=== PATIENT | female | born 1950 | race African-American/Black ===

== ENCOUNTER 2018-06-29 20:17 | Inpatient (IN) | payer OTHER, MEDICAID ==
[~2018-06-29] VITALS: Ht 149.9 cm; Wt 74.8 kg
--- NOTE | 2018-06-29 20:24 | NUR ---
Placed in room 06 . Placed on manager monitoring, blood pressure machine and pulse oximeter. To gown for exam. Side rails up. Report given to GILDARDO LAKE.
[2018-06-29 20:29] VITALS: BP_SYST 126
--- NOTE | 2018-06-29 20:30 | NUR ---
ER Dr. CAMPBELL at bedside examining patient.
[2018-06-29] MEDS ORDERED: NACL 0.9% 1,000 ML IV ONE (20:31)
--- NOTE | 2018-06-29 20:40 | NUR ---
Pt came into the ED for vomiting that started earlier this evening post meal. Pt states that she has intermittent abd pain. She said that she has had multiple vomiting episodes and nausea prior to coming to the ED. HX of breast, liver and bone cancer. She reports that her oncologist who took her off chemotherapy for 12 months. Her marine rigger crissy reports that Dr. Kennedy is her primary and wanted to admit. No fever, chills, SOB, diarrhea, or chest pain.
[2018-06-29] MEDS ORDERED: ONDANSETRON HCL 4 MG/2 ML VIAL IVP ONE (20:45)
--- NOTE | 2018-06-29 20:50 | NUR ---
# 20 gauge angiocath placed to LAC. Use of asceptic technique. Opsite placed over site. Blood return noted. Blood for lab drawn from site. Flushed with 10 cc of normal saline. No evidence of infiltration noted. Patient tolerated well.
--- NOTE | 2018-06-29 20:51 | NUR ---
Pt medicated with NS at 100 mL of fluids per MD order. Pt tolerating well. Will cont. to monitor.
--- NOTE | 2018-06-29 21:04 | NUR ---
# 16 FR In and Out catheter with use of sterile technique. Immediate return of 100 ml dark yellow urine noted. Urine sample collected and sent to lab. Pt tolerated procedure well. Patient unable to toilet self.
[2018-06-29 21:17] LABS: CALCIUM 8.6 mg/dL (8.4-11.0); CREATININE 0.71 mg/dL (0.55-1.30)
[2018-06-29 21:20] LABS: POTASSIUM 6.8 mmol/L (3.5-5.1)
[2018-06-29] MEDS ORDERED: SODIUM POLYSTYRENE SULFONATE 15 GM/60 ML UDBTL PO ONE (21:30)
[2018-06-29] MEDS ORDERED: SODIUM POLYSTYRENE SULFONATE 15 GM/60 ML UDBTL RC ONE (21:30)
[2018-06-29] MEDS ORDERED: DEXTROSE 50% JECT 50 ML DISP.SYRIN IVP ONE (21:30)
[2018-06-29] MEDS ORDERED: INSULIN REGULAR, HUMAN 10 UNITS/0.1 ML INJ IVP ONE (21:30)
[2018-06-29] MEDS ORDERED: HYDR-4272 PO (21:36)
[2018-06-29] MEDS ORDERED: FERR-31 PO (21:36)
[2018-06-29] MEDS ORDERED: CRAN450C PO (21:36)
[2018-06-29] MEDS ORDERED: ACET325T53 PO (21:36)
[2018-06-29] MEDS ORDERED: MULT-1100 PO (21:36)
[2018-06-29] MEDS ORDERED: HAL5 PO (21:36)
--- NOTE | 2018-06-29 21:36 | NUR ---
Medication reconciliation completed with information provided by patient. Any prior medication reconciliation on file was reviewed and corrected.
[2018-06-29 21:40] LABS: BILIRUBIN,URINE 3+ (NEGATIVE); BLOOD, URINE 2+ (NEGATIVE); CLARITY/URINE CLOUDY (CLEAR); COLOR,URINE YELLOW (YELLOW); GLUCOSE,URINE TRACE (NEGATIVE); KETONES,URINE TRACE (NEGATIVE); LEUKOCYTE ESTERASE ,URINE 1+ (NEGATIVE); NITRITE, URINE NEGATIVE (NEGATIVE); PH,URINE 5.5 (5.0-8.0); PROTEIN URINE 1+ (NEGATIVE)
[2018-06-29 21:52] LABS: INR 1.7 (0.8-1.2); PROTHROMBIN TIME 16.6 SECS (9.5-12.5)
[2018-06-29 22:06] LABS: HEMATOCRIT 26.6 % (36-48); HEMOGLOBIN 9.4 g/dL (12.0-16.0); RED BLOOD CELL COUNT(AUTO) 2.59 MIL/uL (4.2-6.2)
[2018-06-29 22:07] LABS: MEAN CORPUSCULAR HEMOGLOBIN 36 pg (27-31); MEAN CORPUSCULAR HGB CONC 35 % (32-36); MEAN CORPUSCULAR VOLUME 103 fL (79.0-98.0); RED CELL DISTRIBUTION WIDTH 21.4 % (9.0-15.0)
[2018-06-29 22:08] LABS: PLATELET COUNT (AUTO) 103 K/uL (130-430)
[2018-06-29 22:11] LABS: ATYPICAL LYMPHOCYTES % 1 % (0-0); BAND % (MANUAL) 8 % (0-6); BASOPHILS % (MANUAL) 0 % (0-2); EOSINOPHILS % (MANUAL) 2 % (0-7); LYMPHOCYTES % (MANUAL) 8 % (20-46); METAMYELOCYTES % 0 % (0-0); MONOCYTES % (MANUAL) 4 % (0-11); MYELOCYTES % 1 % (0-0)
[2018-06-29 22:18] LABS: TOTAL BILIRUBIN 20.5 mg/dL (0.0-1.0)
[2018-06-29 22:19] LABS: ALBUMIN 1.6 g/dL (3.4-4.8)
[2018-06-29 22:48] LABS: BACTERIA,URINE MANY /HPF (None Seen); RBC,URINE 20-50 /HPF (0-3); WBC,URINE 20-50 /HPF (0-3)
[2018-06-29 22:49] LABS: COARSE GRANULAR CASTS,URINE 0-10 /LPF (None Seen); MUCUS,URINE 1+ /LPF (None Seen); YEAST,URINE None Seen /HPF (None Seen)
--- NOTE | 2018-06-29 22:59 | NUR ---
Patient will be admitted to care of Dr. Kennedy. Admitted to icu unit. Will go to room 4. Belongings list completed. Summary report printed. Report will be given at bedside.
--- NOTE | 2018-06-29 23:20 | NUR ---
Transfer to ICU via ACLS protocol. Licensed nurse present. IV present no signs or symptoms of infiltration. Report given to ALESKANDRA Stewart
[2018-06-29 23:45] VITALS: BP_SYST 114; BP_SYST 119
--- NOTE | 2018-06-29 23:45 | NUR ---
ADMISSION Pt came in via connie AAOX4, received report from RECTIFYING ATTENDANT, on room air with VSS. Complaints of nausea and denies pain. Abrasion noted on the left leg, leg foot and right foot. Multiple scratches noted on the abdomen and back. IV on the LAC patent with no redness or infiltration noted. Safety precaution observed, call light within reach. Will continue to monitor Pt.
[2018-06-29] MEDS: D5/0.45 NS 1,000 ML IV SCH (23:48)
[2018-06-30] VITALS (23 sets, daily range): BP systolic 103–142
[2018-06-30] MEDS: ONDANSETRON HCL 4 MG/2 ML VIAL IVP PRN ×2 (00:56→13:01)
[2018-06-30] MEDS: TEMAZEPAM 15 MG CAPSULE PO PRN ×2 (02:00→21:02)
[2018-06-30] MEDS: ACETAMINOPHEN 325 MG TABLET PO PRN (03:28)
[2018-06-30] MEDS ORDERED: TEMAZEPAM 15 MG CAPSULE ONE (03:32)
--- NOTE | 2018-06-30 04:00 | NUR ---
REASSESSMENT Pt in bed, no acute distress at this time. Will continue to monitor Pt.
--- NOTE | 2018-06-30 05:27 | NUR ---
DR DEL ANGEL EXCHANGE NOTIFFIED OF CONSULT.TALKED TO MARCY
[2018-06-30 06:45] LABS: CREATININE 0.79 mg/dL (0.55-1.30); POTASSIUM 3.7 mmol/L (3.5-5.1)
[2018-06-30 06:56] LABS: PHOSPHORUS 4.4 mg/dL (2.7-4.5)
--- NOTE | 2018-06-30 07:00 | NUR ---
FRANK CATHETER # 16 FR Frank catheter with bulb inserted with use of sterile technique. Bulb inflated with 10 cc sterile water. Immediate return of 10 cc polo urine noted. Bedside drainage bag placed below level of bladder. Pt tolerated procedure well.
--- NOTE | 2018-06-30 07:18 | NUR ---
CLOSING NOTES Pt in bed, IV lines and skin checked. Will give report to oncoming RN via SBAR.
[2018-06-30 07:24] LABS: HEMOGLOBIN 7.6 g/dL (12.0-16.0); MEAN CORPUSCULAR HEMOGLOBIN 36 pg (27-31); MEAN CORPUSCULAR HGB CONC 35 % (32-36); MEAN CORPUSCULAR VOLUME 103 fL (79.0-98.0); PLATELET COUNT (AUTO) 62 K/uL (130-430); RED BLOOD CELL COUNT(AUTO) 2.11 MIL/uL (4.2-6.2); RED CELL DISTRIBUTION WIDTH 21.2 % (9.0-15.0)
[2018-06-30 07:29] LABS: HEMATOCRIT 21.8 % (36-48)
--- NOTE | 2018-06-30 07:30 | NUR ---
AM notes: Received patient lying down, drowsy but easy arousal when calling names. no s/s of cardiopulmonary distress. lung sound diminished. ivf infusing well site patent D5 1/2 ns @ 75ml/hr. abdomen distended. skin jaundice. generalized abrasion r/t abrasion. generalized edema. dx of anasarca. vital sign stable, afebrile. informed about the poc. verbalized understanding. call light within reach.bed is low and lock position. will monitor.
--- NOTE | 2018-06-30 09:30 | NUR ---
lanza catheter discontinued. patient complaining of lanza catheter hurting.requested to removed. lanza discontinued.tip is intact. no hematuria noted.encourage to notify nurse first void. verbalized understanding. will monitor.
[2018-06-30 10:05] LABS: ATYPICAL LYMPHOCYTES % 0 % (0-0); BAND % (MANUAL) 2 % (0-6); BASOPHILS % (MANUAL) 0 % (0-2); EOSINOPHILS % (MANUAL) 1 % (0-7); LYMPHOCYTES % (MANUAL) 8 % (20-46); MONOCYTES % (MANUAL) 6 % (0-11)
--- NOTE | 2018-06-30 10:05 | NUR ---
notes: Paged MD price via pager. awaited to callback.
--- NOTE | 2018-06-30 10:18 | NUR ---
Nutrition Update Husam Scale 14 noted. Pt admitted for hyponatremia, hypokalemia, dehydration, metastasis. Diet: clear liquid BMI: 33.3 kg/m2 RD to follow per nutrition care standards.
--- NOTE | 2018-06-30 13:00 | NUR ---
Notes: patient complained of nausea after eating clear liquid diet. medicated with zofran 4 mg ivp.
[2018-06-30] MEDS: D5/0.45 NS 1,000 ML IV SCH (15:02)
--- NOTE | 2018-06-30 15:20 | NUR ---
ONCOLOGY CONSULT: seen by Dr. Marcano discuss with patient. new order received.
--- NOTE | 2018-06-30 16:15 | NUR ---
notes: patient vomited food contain brownish color noted. cleanse and oral care provided. will monitor.
--- NOTE | 2018-06-30 16:50 | NUR ---
NOTES: unable to finished venous ultrasound because patient vomited. will try again later.
[2018-06-30] MEDS ORDERED: NS 500 ML IV ONE (17:00)
--- NOTE | 2018-06-30 17:00 | NUR ---
NEPHRO CONSULT: SEEN BY DR. ISIDRO INFORMED ABOUT PATIENT CURRENT CONDITION. LOW URINE OUTPUT. NEW ORDER RECEIVED REGLAN 10MG IVP @6 HRS PRN FOR N/V AND 500ML OF NORMAL SALINE BOLUS.NOTED.
[2018-06-30] MEDS: METOCLOPRAMIDE HCL 10 MG/2 ML VIAL IVP SCH (17:10)
--- NOTE | 2018-06-30 18:48 | NUR ---
Notes: all needs mets. patient a/o, denies pain. still feel nauseated. x 2 vomited for entire shift brownish color. ivf infusing well site patent. no swelling or infiltration noted. generalized edema.turn and reposition q2 hrs with pillow support. multiple abrasion and scratches noted. no open skin. vital sign stable,afebrile. held dinner for now. Venous Doppler ultrasound ongoing at the bedside.call light within reach. will endorsed to incoming nurse.
--- NOTE | 2018-06-30 20:00 | NUR ---
TRANSFER OF CARE Pt AAOX4, received report from AM shift RN, on room air with VSS. No acute distress at this time. Abrasion noted on the left leg, leg foot and right foot. Multiple scratches noted on the abdomen and back. IV on the LAC patent with no redness or infiltration noted. Dacosta catheter refused by Pt. Safety precaution observed, call light within reach. Will continue to monitor Pt.
[2018-06-30] MEDS: HALOPERIDOL 5 MG TABLET (HALDOL) PO SCH (21:02)
[2018-06-30] MEDS: HEPARIN SODIUM,PORCINE 5000 UNITS/ML VIAL SUBCUT SCH (22:02)
[2018-07-01] VITALS (24 sets, daily range): BP systolic 87–131
--- NOTE | 2018-07-01 | NUR ---
REASSESSMENT Pt in bed, no acute distress at this time. Will continue to monitor Pt.
[2018-07-01] MEDS: D5/0.45 NS 1,000 ML IV SCH ×2 (02:13→15:45)
--- NOTE | 2018-07-01 04:00 | NUR ---
REASSESSMENT Pt in bed, no acute distress at this time. Will continue to monitor Pt.
[2018-07-01] MEDS: ONDANSETRON HCL 4 MG/2 ML VIAL IVP PRN ×2 (05:41→15:46)
[2018-07-01 06:08] LABS: HEMATOCRIT 24.9 % (36-48); HEMOGLOBIN 8.6 g/dL (12.0-16.0); MEAN CORPUSCULAR HEMOGLOBIN 35 pg (27-31); MEAN CORPUSCULAR HGB CONC 34 % (32-36); MEAN CORPUSCULAR VOLUME 101 fL (79.0-98.0); PLATELET COUNT (AUTO) 65 K/uL (130-430); RED BLOOD CELL COUNT(AUTO) 2.46 MIL/uL (4.2-6.2); WHITE BLOOD COUNT (AUTO) 7.9 K/uL (4.8-10.8)
[2018-07-01 06:57] LABS: TOTAL IRON BIND. CAPACITY 139 ug/dL (250-450)
--- NOTE | 2018-07-01 07:25 | NUR ---
CLOSING NOTES Pt in bed, no acute distress at this time. IV lines and skin checked. Gave report to AM shift RN.
[2018-07-01 08:26] LABS: BAND % (MANUAL) 6 % (0-6); BASOPHILS % (MANUAL) 0 % (0-2); EOSINOPHILS % (MANUAL) 0 % (0-7); LYMPHOCYTES % (MANUAL) 9 % (20-46); MONOCYTES % (MANUAL) 3 % (0-11); MYELOCYTES % 1 % (0-0)
--- NOTE | 2018-07-01 09:05 | NUR ---
MADE DR DEL ANGEL AWARE CT ABDOMEN W/ CONTRAST CANNOT BE COMPLETE D/T PT ALLERGY TO SHELLFISH. MD TO COME SEE PT LATER TODAY. NO NEW ORDERS RECEIVED AT THIS TIME.
[2018-07-01] MEDS: HEPARIN SODIUM,PORCINE 5000 UNITS/ML VIAL SUBCUT SCH ×2 (09:07→20:26)
--- NOTE | 2018-07-01 09:30 | NUR ---
DR MENA HERE TO EVALUATE PT. AWARE OF AM LABS AND PT FOR PICC/MIDLINE INSERTION TODAY. ORDERS RECEIVED.
[2018-07-01] MEDS: METOCLOPRAMIDE HCL 10 MG/2 ML VIAL IVP SCH ×4 (12:06→23:44)
--- NOTE | 2018-07-01 14:27 | NUR ---
Dietitian Recommendations * Recommend continuing clear liquid diet per MD * Consider TPN support if/when medically appropriate LP, RD Please refer to Nutrition Assessment for details.
--- NOTE | 2018-07-01 14:50 | NUR ---
DR DEL ANGEL HERE TO EVALUATE PT. MD AWARE OF LABS, VENOUS DOPPLER RESULT. ORDERS RECEIVED.
[2018-07-01 19:24] LABS: CALCIUM 7.8 mg/dL (8.4-11.0); CREATININE 1.4 mg/dL (0.55-1.30); POTASSIUM 4.6 mmol/L (3.5-5.1)
--- NOTE | 2018-07-01 19:35 | NUR ---
PM Assessment Pt in bed. AAO x4. Pt on RA. SR shown on monitor. No s/s of distress or discomfort noted. Pt skin not intact. Q2H turn interventions in place. LAC 20g IV in place. Site is C/D/I. No s.s of infiltration. Bed locked in lowest position, safety precautions in place, and call light in reach. Will continue to monitor.
[2018-07-01 19:36] LABS: ALBUMIN 1.3 g/dL (3.4-4.8)
[2018-07-01 20:13] LABS: TOTAL BILIRUBIN 17.7 mg/dL (0.0-1.0)
[2018-07-01] MEDS: HALOPERIDOL 5 MG TABLET (HALDOL) PO SCH (20:24)
--- NOTE | 2018-07-01 22:45 | NUR ---
MD Called Spoke with Dr. José regarding Pt's labs. Orders received. Will carry out as ordered.
[2018-07-01] MEDS ORDERED: SODIUM BICARBONATE 8.4% JECT 50 MEQ/50 ML SYRINGE ONE (23:06)
[2018-07-01] MEDS ORDERED: SODIUM BICARBONATE 8.4% JECT 50 MEQ/50 ML SYRINGE IVP SCH (23:30)
[2018-07-02] VITALS (24 sets, daily range): BP systolic 85–171
--- NOTE | 2018-07-02 01:45 | NUR ---
RN Rounds Pt in bed, aasleep. No s/s of distress noted. Will continue to monitor.
--- NOTE | 2018-07-02 04:05 | NUR ---
RN Rounds Pt in bed asleep. No s/s of distress noted. Will continue to monitor.
[2018-07-02 05:09] LABS: HEMOGLOBIN 7.1 g/dL (12.0-16.0); MEAN CORPUSCULAR HEMOGLOBIN 34 pg (27-31); MEAN CORPUSCULAR HGB CONC 34 % (32-36); MEAN CORPUSCULAR VOLUME 101 fL (79.0-98.0); PLATELET COUNT (AUTO) 56 K/uL (130-430); RED BLOOD CELL COUNT(AUTO) 2.09 MIL/uL (4.2-6.2); RED CELL DISTRIBUTION WIDTH 21.5 % (9.0-15.0)
[2018-07-02] MEDS: METOCLOPRAMIDE HCL 10 MG/2 ML VIAL IVP SCH ×4 (05:39→23:33)
[2018-07-02] MEDS: D5/0.45 NS 1,000 ML IV SCH ×2 (05:40→17:12)
[2018-07-02 05:43] LABS: HEMATOCRIT 21.2 % (36-48)
[2018-07-02 05:49] LABS: WHITE BLOOD COUNT (AUTO) 8.5 K/uL (4.8-10.8)
[2018-07-02 05:53] LABS: BAND % (MANUAL) 10 % (0-6); LYMPHOCYTES % (MANUAL) 10 % (20-46)
[2018-07-02 05:55] LABS: EOSINOPHILS % (MANUAL) 2 % (0-7); MONOCYTES % (MANUAL) 8 % (0-11)
[2018-07-02 06:30] LABS: ALBUMIN 1.1 g/dL (3.4-4.8); CALCIUM 7.7 mg/dL (8.4-11.0); CREATININE 1.75 mg/dL (0.55-1.30); POTASSIUM 4.3 mmol/L (3.5-5.1)
[2018-07-02 06:39] LABS: TOTAL BILIRUBIN 15.7 mg/dL (0.0-1.0)
--- NOTE | 2018-07-02 07:10 | NUR ---
Endorsement Pt remains asleep in bed. PICC line site C/D/I. IV LAC discontinued. No s/s of distress noted. Gave report to oncoming nurse at bedside via SBAR approach.
[2018-07-02] MEDS: HEPARIN SODIUM,PORCINE 5000 UNITS/ML VIAL SUBCUT SCH ×2 (08:47→20:27)
--- NOTE | 2018-07-02 09:03 | NUR ---
MADE DR MENA AWARE OF LOW H&H AND LOW BP. ORDERS RECEIVED.
[2018-07-02] MEDS ORDERED: NS 500 ML IV ONE ×2 (09:15→23:22)
[2018-07-02] MEDS ORDERED: SODIUM BICARBONATE 8.4% JECT 50 MEQ/50 ML SYRINGE IVP ONE (14:30)
--- NOTE | 2018-07-02 16:24 | NUR ---
DR MENA HERE TO EVALUATE PT. MADE MD AWARE OF PT HAVING BLOODY NOSE THIS MORNING AND THAT HEPARIN WAS HELD. MADE MD AWARE PT NOT TOLERATING PO DIET VERY WELL, GETS NAUSEAS, MD TO ORDER TPN.
[2018-07-02] MEDS ORDERED: *TPN PER PHARMACY XX PRN (16:30)
--- NOTE | 2018-07-02 19:30 | NUR ---
PM ASSESSMENT REPORT RECEIVED FROM MARYLIN LAKE. PT RECEIVED IN BED WITH EYES CLOSED, AAOX3 BUT LETHARGIC, AND ABLE TO VERBALIZE NEEDS. VSS, NO S/S OF ACUTE DISTRESS NOTED AT THIS TIME. PT ON RA, SAT 95%. SR ON MONITOR. COLTON PICC INFUSING D5 1/2 NS @ 100 CC/HR. PT DENIES ANY PAIN OR DISCOMFORT AT THIS TIME. HOB ELEVATED, BED IN LOWEST POSITION, CALL LIGHT IN REACH. WILL CONTINUE TO MONITOR.
[2018-07-02] MEDS: HALOPERIDOL 5 MG TABLET (HALDOL) PO SCH (20:27)
[2018-07-02] MEDS: ACETAMINOPHEN 325 MG TABLET PO PRN (21:29)
--- NOTE | 2018-07-02 21:30 | NUR ---
RN ROUNDS PT C/O PAIN IN BOTH LEGS AT THIS TIME. PT GIVEN TYLENOL PER ORDERS. PT TOLERATED WELL, NO S/S OF MEDICATION REACTIONS NOTED AND PT DENIES ANY NAUSEA AT THIS TIME. WILL CONTINUE TO MONITOR PT.
[2018-07-02] MEDS ORDERED: NOREPINEPHRINE BITARTRATE 4 MG in D5W 246 ML IV PRN (23:30)
[2018-07-03] VITALS (24 sets, daily range): BP systolic 74–108
[2018-07-03] MEDS: D5/0.45 NS 1,000 ML IV SCH ×3 (02:13→21:54)
--- NOTE | 2018-07-03 03:45 | NUR ---
RN ROUNDS PT PASSED MODERATE AMOUNT OF FORMED STOOL AND VOIDED AT THIS TIME. MARY CARE PROVIDED AND LINENS CHANGED. PT TOLERATED WELL. WILL CONTINUE TO MONITOR PT.
[2018-07-03] MEDS: METOCLOPRAMIDE HCL 10 MG/2 ML VIAL IVP SCH ×4 (05:11→23:24)
[2018-07-03 06:52] LABS: MEAN CORPUSCULAR HEMOGLOBIN 34 pg (27-31); MEAN CORPUSCULAR HGB CONC 34 % (32-36); MEAN CORPUSCULAR VOLUME 101 fL (79.0-98.0); RED BLOOD CELL COUNT(AUTO) 2.02 MIL/uL (4.2-6.2); RED CELL DISTRIBUTION WIDTH 20.9 % (9.0-15.0); WHITE BLOOD COUNT (AUTO) 6.7 K/uL (4.8-10.8)
[2018-07-03 06:59] LABS: CALCIUM 7.2 mg/dL (8.4-11.0); CREATININE 2.24 mg/dL (0.55-1.30); PHOSPHORUS 6.5 mg/dL (2.7-4.5); POTASSIUM 4.3 mmol/L (3.5-5.1)
--- NOTE | 2018-07-03 07:45 | NUR ---
RN OPENING NOTE RECEIVED SBAR REPORT AT BEDSIDE FROM ENDORSING NURSE. BED IN LOWEST POSITION, CALL LIGHT WITHIN REACH, AND BED ALARM ACTIVE. SEE VS FLOW SHEET
--- NOTE | 2018-07-03 08:00 | NUR ---
PT REFUSED SCD, CLAIMS IT HURTS HER LEGS
--- NOTE | 2018-07-03 08:16 | NUR ---
DR. ISIDRO (LINE MANAGER) AT BEDSIDE NEW ORDERS RECEIVED
[2018-07-03 08:39] LABS: HEMATOCRIT 20.4 % (36-48); HEMOGLOBIN 6.9 g/dL (12.0-16.0); PLATELET COUNT (AUTO) 35 K/uL (130-430)
[2018-07-03 08:44] LABS: TOTAL BILIRUBIN 16.2 mg/dL (0.0-1.0)
[2018-07-03] MEDS ORDERED: DIPHENHYDRAMINE INJ 50 MG/ML VIAL IVP ONE (08:45)
[2018-07-03] MEDS: HEPARIN SODIUM,PORCINE 5000 UNITS/ML VIAL SUBCUT SCH ×2 (09:11→21:03)
--- NOTE | 2018-07-03 11:29 | NUR ---
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 Pt seen, +IV infusing, c/o coughing. RD obtained wt w/ bed scale 187 lb. 07/03 RD s/w pharmacy, [facility] (3x 0830, 1010, 1110)and RD agreed w/ pharmacy final rec of using nephramine 5.4%. Per EMR, PO intake 8% x 3 meals 07/02/18. Last emesis 06/30/18 100ml. Pt is not yet meeting optimal nutritional needs. Current Diet Order/Nutrition Support Clear liquid x3 days Patient/Significant Other Able To Verbalize Education Provided Not Indicated Pertinent Medications reglan, zofran, D5%/NaCl IV, heparin, haldol Pertinent Labs Na 126 L, BUN 43 H, H/H 7.1 L/21.2 L, CRE 1.75 H, AST 1137 H, ALT 203 H, ALP 1129 H, ALB 1.1 L Height (Feet) 4 feet Height (Inches) 11.00 inches Weight (Pounds) 165 pounds BED SCALE WT: (07/03) 187 lb --- may be inaccurate d/t multiple blankets. Weight (Calculated Kilograms) 74.838877 kilograms Patient Weight 74.843 kg Body Mass Index 33.32 kg/m2 %IBW 167 Dalton/Adjusted Body Weight IBW: 98 lb, 45 kg. Adj IBW (obesity): 115 lb, 52 kg Recent Weight Change No Weight Status Overweight Gastrointestinal Symptoms None Last BM Jul 03, 2018 Food Allergies unable to verify Usual Diet At Home Regular per nursing notes Skin Integrity Comment: Husam scale: 14; per nursing notes, +jaundiced skin color, anterior posterior abd w/ scratches and L foot, L leg, and R foot w/ abrasion. 4+ pitting edema of Bilateral leg, non-pitting edema of R arm. Current % PO Negligible <25% Estimated Energy Expenditure (kcals/day) 2640-4521 kcal/day (30-35 kcal/kg Adj IBW for CA) Estimated Protein Required (g/day) 62-78 gm/day (1.2-1.5 gm/kg Adj IBW for CA) Estimated Fluid Required (l/day) 2.3 L/day (30 ml/kg CBW for maintenance) Problem/Etiology/Signs/Symptoms Inadequate nutritional intakes related to lack of appetite as evidenced by RN report, and plans for TPN support. *ongoing Expected Outcomes/Goals - Monitor TPN tolerance/intake and PO intakes w/ goal of pt meeting greater than 75% of estimated nutritional needs, labs trending WNL, normal GI function, and skin integrity/wt maintenance Dietitian Recommendations * Recommend continuing clear liquid diet per MD * Recommend D40% AA5.4% at 70ml/hr, IL20% at 10ml/hr via central line Provides: 1803 kcal, 45 gm protein and GIR 3.1gm CHO/kg/min Meets: 99% of estimated calorie needs and 73% of lower end of estimated protein needs. Follow Up High Risk: F/U in 2-3days RD s/w pharmacy ([facility]) for final rec 07/03 6125.
--- NOTE | 2018-07-03 11:40 | NUR ---
DR. DEL ANGEL AT BEDSIDE NEW ORDERS RECEIVED
--- NOTE | 2018-07-03 11:44 | NUR ---
Dietitian Recommendations * Recommend continuing clear liquid diet per MD * Recommend D40% AA5.4% at 70ml/hr(goal rate), IL20% at 10ml/hr via central line Provides: 1803 kcal, 45 gm protein and GIR 3.1gm CHO/kg/min Meets: 99% of estimated calorie needs and 73% of lower end of estimated protein needs. RD s/w pharmacy ([facility]) re: final rec. 07/03/18 1110. Please see Nutrition F/U note for details. GLEN BENAVIDEZ
--- NOTE | 2018-07-03 12:15 | NUR ---
CHG BATH ADMINISTERED
[2018-07-03 12:22] LABS: BAND % (MANUAL) 14 % (0-6); BASOPHILS % (MANUAL) 0 % (0-2); EOSINOPHILS % (MANUAL) 0 % (0-7); LYMPHOCYTES % (MANUAL) 11 % (20-46); METAMYELOCYTES % 2 % (0-0); MONOCYTES % (MANUAL) 1 % (0-11)
--- NOTE | 2018-07-03 15:30 | NUR ---
BT INITIATION: Consent signed per Pt agreeing to administration of blood. Blood has been type and crossmatched. Blood sent from blood bank. Information on unit of blood checked against patient wristband at bedside by two nurses. All information matches. Patient or responsible constitution party informed of potential complications associated with blood transfusion. Informed of possible transfusion reaction symptoms. Aware of need to notify nurse at once of itching, shortness of breath, flushing, feeling of impending doom, or other symptoms not previously present. Vital signs taken within 5 minutes prior to initiation of transfusion. RN remained with patient for first 15 minutes of transfusion at which time vital signs will be re-assessed.
[2018-07-03] MEDS ORDERED: FAT EMULSIONS 250 ML IV SCH (18:00)
[2018-07-03] MEDS ORDERED: POTASSIUM CHLORIDE IV SCH ×8 (18:00)
[2018-07-03] MEDS ORDERED: TPN NEPHRAMINE IV SCH ×8 (18:00)
[2018-07-03] MEDS ORDERED: SODIUM ACETATE IV SCH ×8 (18:00)
[2018-07-03] MEDS ORDERED: [UNRECOGNIZED DRUG - OTHER] IV SCH ×8 (18:00)
[2018-07-03] MEDS ORDERED: NOREPINEPHRINE 4 MG/4 ML VIAL IV ONE (18:27)
--- NOTE | 2018-07-03 18:30 | NUR ---
HYPOTENSION-LEVOPHED INFUSION INITIATED SEE IV DRIP FLOW SHEET
--- NOTE | 2018-07-03 19:25 | NUR ---
ENDORSEMENT SBAR REPORT ENDORSED TO RECEIVING NURSE AT BEDSIDE.
--- NOTE | 2018-07-03 19:30 | NUR ---
PM ASSESSMENT REPORT RECEIVED FROM AGNES LAKE. PT RECEIVED IN BED WITH EYES OPEN CONFUSED BUT ABLE TO VERBALIZE NEEDS. PT SHORT OF BREATH AT THIS TIME AND PLACED ON 2L NC. SR ON MONITOR. COLTON PICC IN PLACE INFUSING TPN @ 44 CC/HR, LIPIDS @ 10 CC/HR, D5 1/2 NS @ 100 CC/HR, AND LEVOPHED DRIP @ 2 MCG/MIN. PT DENIES ANY PAIN OR DISCOMFORT. HOB ELEVATED, BED IN LOWEST POSITION, CALL LIGHT IN REACH. WILL CONTINUE TO MONITOR PT.
--- NOTE | 2018-07-03 20:04 | NUR ---
PAGED DR. BOSTON, SPOKE TO EXCHANGE. NURSE AWARE.
--- NOTE | 2018-07-03 20:15 | NUR ---
SOB MD DR. BOSTON ALSO MADE AWARE OF PT SOB AT THIS TIME. DID NOT WANT TO ORDER ABGs OR PULMONARY CONSULT BUT GAVE ORDERS TO TITRATE O2 TO KEEP SATURATIONS >90%. WILL CONTINUE TO MONITOR PT.
--- NOTE | 2018-07-03 20:15 | NUR ---
MD ROUNDS DR. BOSTON AT BEDSIDE TO EVALUATE PT. ORDERS RECEIVED AND WILL BE CARRIED OUT ORDERED.
--- NOTE | 2018-07-03 20:15 | NUR ---
DR. BOSTON HERE EXAMINING PATIENT.
[2018-07-03] MEDS ORDERED: LEVOFLOXACIN 500 MG/D5W 100 ML IV SCH (21:00)
[2018-07-03] MEDS: HALOPERIDOL 5 MG TABLET (HALDOL) PO SCH (21:00)
[2018-07-03] MEDS: ALBUMIN HUMAN 25% 50 ML IV SCH (21:00)
[2018-07-03] MEDS ORDERED: LEVOFLOXACIN 500 MG/D5W 100 ML IV ONE (21:49)
--- NOTE | 2018-07-03 23:10 | NUR ---
OXIMIZER PT PLACED ON 8L OXIMIZER BY RT AT THIS TIME, SAT 91%. WILL CONTINUE TO MONITOR PT.
[2018-07-03] MEDS: TEMAZEPAM 15 MG CAPSULE PO PRN (23:24)
[2018-07-03] MEDS: ACETAMINOPHEN 325 MG TABLET PO PRN (23:25)
[2018-07-04] VITALS (16 sets, daily range): BP systolic 65–137
[2018-07-04] MEDS: ALBUMIN HUMAN 25% 50 ML IV SCH ×2 (00:30→03:55)
[2018-07-04] MEDS ORDERED: NOREPINEPHRINE 4 MG/4 ML VIAL IV ONE ×7 (00:49→15:44)
--- NOTE | 2018-07-04 02:25 | NUR ---
NON-REBREATHER PT SATURATION IN HIGH 70s LOW 80s AT THIS TIME. PT PUT ON 100% NON-REBREATHER MASK BY RT AT THIS TIME. WILL CONTINUE TO MONITOR PT.
--- NOTE | 2018-07-04 03:05 | NUR ---
PT INTUBATED PT BREATHING GROWING INCREASINGLY LABORED, O2 SAT REMAINS IN THE HIGH 70s, LOW 80s ON 100% NON-REBREATHER. PT LETHARGIC AND SOB. PT INTUBATED AT THIS TIME BY ER DR. CAMPBELL. 15 MG ETOMIDATE USED DURING PROCEDURE. SIZE 7.5 ET TUBE PLACED, 21 AT THE LIP LINE. X-RAY OBTAINED FOR CORRECT PLACEMENT. VENT SETTINGS: AC 16, TV 500, FIO2 100%, PEEP 5. O2 SATURATION 100%. WILL CONTINUE TO MONITOR PT.
--- NOTE | 2018-07-04 03:15 | NUR ---
DR. LUDY BOSTON PAGED AND MADE AWARE OF PT INTUBATION. ORDERS RECEIVED AND WILL BE CARRIED OUT ORDERED.
--- NOTE | 2018-07-04 03:15 | NUR ---
OG TUBE PLACEMENT: # 16 FR NG tube placed orally. Placement checked by auscultation of instilled air into stomach and aspiration of gastric contents. Tubing taped in place to prevent dislodging. Patient tolerated well. Ogt placed on low-intermittent suction per MD orders, copious amount of coffee ground secretions suctioned from OGT at this time.
[2018-07-04] MEDS ORDERED: COMMUNICATION ORDER XX ONE ×3 (03:30→19:15)
[2018-07-04] MEDS ORDERED: ETOMIDATE 20 MG/ 10 ML VIAL (AMIDATE) IVP ONE ×2 (03:30→11:12)
--- NOTE | 2018-07-04 03:50 | NUR ---
FRANK CATH: # 16 FR Frank catheter with 10 cc bulb inserted with use of sterile technique. Bulb inflated with 10 cc sterile water. Immediate return of 20 cc TONY urine noted. Bedside drainage bag placed below level of bladder. Pt tolerated procedure well.
--- NOTE | 2018-07-04 03:55 | NUR ---
CALL DR. LUDY LARSON AND MADE AWARE OF PT INTUBATION. ORDERS RECEIVED AND WILL BE CARRIED OUT ORDERED. Addendum: 07/04/18 at 0600 by Hailee Sweet RN WRONG TIME: MD LARSON AT [id number]
--- NOTE | 2018-07-04 04:05 | NUR ---
STAT CONSULT CALLED FOR DR. CARRASCO, DR. CARTAGENA HALAL MEAT PACKER. NURSE NOTIFIED.
--- NOTE | 2018-07-04 04:25 | NUR ---
DR. OSIEL CARTAGENA PAGED AND MADE AWARE OF PT CONDITION AND CURRENT ABGS. ORDERS RECEIVED AND WILL BE CARRIED OUT ORDERED.
[2018-07-04] MEDS ORDERED: LORazepam 2 MG/ML VIAL IVP PRN (04:45)
[2018-07-04] MEDS: NOREPINEPHRINE BITARTRATE 8 MG in D5W 242 ML IV PRN ×5 (04:45→18:24)
--- NOTE | 2018-07-04 04:55 | NUR ---
VENT CHANGES AC CHANGED TO [address] CARTAGENA'S ORDERS. WILL CONTINUE TO MONITOR PT.
[2018-07-04] MEDS ORDERED: SODIUM BICARBONATE 8.4% JECT 50 MEQ/50 ML SYRINGE ONE ×4 (04:58→20:16)
[2018-07-04] MEDS ORDERED: SODIUM BICARBONATE 8.4% JECT 50 MEQ/50 ML SYRINGE IVP SCH (05:00)
[2018-07-04] MEDS ORDERED: NACL 0.9% 1,000 ML IV SCH (05:00)
[2018-07-04] MEDS: METOCLOPRAMIDE HCL 10 MG/2 ML VIAL IVP SCH ×3 (05:08→17:47)
[2018-07-04] MEDS: DOPamine PREMIX 250 ML IV PRN ×4 (06:58→18:06)
[2018-07-04] MEDS ORDERED: DOPamine PREMIX 250 ML IV ONE (06:58)
--- NOTE | 2018-07-04 07:15 | NUR ---
OPENING NOTE: Received plan of care from ALEKSANDRA Stephen. Patient obtunded and on mechanical vent. LT upper arm PICC line patent with infusion pump running. BP low, see flow sheet. Levophed and Dopamine drips in place and running, see flow sheet. Bed locked in lowest position, will continue to monitor.
--- NOTE | 2018-07-04 07:25 | NUR ---
ENDORSEMENT BEDSIDE REPORT GIVEN TO ANUP LAKE USING SBAR APPROACH.
--- NOTE | 2018-07-04 07:35 | NUR ---
Witnessed dopamine infusing at 15 mcgs.
--- NOTE | 2018-07-04 07:40 | NUR ---
RT NOTES PER INCREASED RESPIRATORY RATE TO 28. RN ANUP MADE AWARE. WILL CONTINUE MONITORING.
[2018-07-04] MEDS ORDERED: SODIUM BICARBONATE 8.4% JECT 50 MEQ/50 ML SYRINGE IVP ONE ×4 (07:45→16:30)
--- NOTE | 2018-07-04 07:50 | NUR ---
Family Search Mitchel Chung from pts board and care called back and said that he is unable to find any contact info for the pt.
[2018-07-04 08:04] LABS: ALBUMIN 1.2 g/dL (3.4-4.8); CALCIUM 7.3 mg/dL (8.4-11.0); CREATININE 2.83 mg/dL (0.55-1.30); PHOSPHORUS 8.7 mg/dL (2.7-4.5); POTASSIUM 4.6 mmol/L (3.5-5.1); TOTAL BILIRUBIN 11.5 mg/dL (0.0-1.0)
--- NOTE | 2018-07-04 08:15 | NUR ---
Family Search Called [facility] [phone], spoke with Nevaeh. She will check records and call us back if she finds any family contact info.
[2018-07-04] MEDS: HEPARIN SODIUM,PORCINE 5000 UNITS/ML VIAL SUBCUT SCH (08:20)
--- NOTE | 2018-07-04 08:30 | NUR ---
Family Search Called Dr Holly 's office t inquire if they have any family contact info. The office is closed until 929 per exchange.
--- NOTE | 2018-07-04 08:40 | NUR ---
Family Search Called Dr. Kennedy's office to inquire about family contact. The office is closed and opens up at 0900.
--- NOTE | 2018-07-04 08:45 | NUR ---
Family Search Nevaeh with [facility] called back and has checked all their records and is unable to locate any family contact info.
[2018-07-04 08:47] LABS: MEAN CORPUSCULAR HEMOGLOBIN 35 pg (27-31); MEAN CORPUSCULAR HGB CONC 34 % (32-36); MEAN CORPUSCULAR VOLUME 104 fL (79.0-98.0); RED BLOOD CELL COUNT(AUTO) 1.29 MIL/uL (4.2-6.2); WHITE BLOOD COUNT (AUTO) 3.3 K/uL (4.8-10.8)
[2018-07-04 08:48] LABS: HEMOGLOBIN 4.5 g/dL (12.0-16.0)
[2018-07-04 08:49] LABS: HEMATOCRIT 13.4 % (36-48); PLATELET COUNT (AUTO) 22 K/uL (130-430); RED CELL DISTRIBUTION WIDTH 21.3 % (9.0-15.0)
--- NOTE | 2018-07-04 08:50 | NUR ---
Call out to Dr. Azul for H/H and labs.
--- NOTE | 2018-07-04 09:05 | NUR ---
Paged Dr. Barrera regarding h/h and labs.
--- NOTE | 2018-07-04 09:18 | NUR ---
Spoke with Dr. Azul regarding labs and orders left. Still unable to reach family at this time.
--- NOTE | 2018-07-04 09:40 | NUR ---
RT NOTES INCREASED RESPIRATORY RATE TO [address] CARRASCO. RN ANUP MADE AWARE. WILL CONTINUE MONITORING.
--- NOTE | 2018-07-04 09:40 | NUR ---
Dr. Azul in to see pt. Orders left.
[2018-07-04] MEDS ORDERED: SODIUM BICARBONATE 8.4% JECT 50 MEQ/50 ML SYRINGE IV ONE (09:45)
[2018-07-04] MEDS ORDERED: SODIUM BICARBONATE 8.4% JECT 100 MEQ in 0.45% NACL 1,000 ML IV SCH (10:00)
--- NOTE | 2018-07-04 10:00 | NUR ---
Dr. Barrera called back in and informed labs were reported to someone else and orders left.
--- NOTE | 2018-07-04 10:53 | NUR ---
BT INITIATION: Consent signed per patient agreeing to administration of blood. Blood has been typed and crossmatched. Blood sent from blood bank. Information on unit of blood checked against patient wristband at bedside by two nurses. All information matches. Patient or responsible green party informed of potential complications associated with blood transfusion. Informed of possible transfusion reaction symptoms. Aware of need to notify nurse at once of itching, shortness of breath, flushing, feeling of impending doom, or other symptoms not previously present. Vital signs taken within 5 minutes prior to initiation of transfusion. RN will remain with patient for first 15 minutes of transfusion at which time vital signs will be re-assessed.
--- NOTE | 2018-07-04 11:08 | NUR ---
Blood Transfusion: Blood transfusion started, blood pressure reading undetectable, moved automatic cuff to BUE, and BLE with no reading, able to verify pulse with doppler.
[2018-07-04 11:32] LABS: FIBRINOGEN 154 mg/dL (200-400)
[2018-07-04 11:35] LABS: INR > 9.0 (0.8-1.2); PROTHROMBIN TIME > 100.0 SECS (9.5-12.5)
--- NOTE | 2018-07-04 11:40 | NUR ---
Nataliya.T. PT COMPLETED TRANSFUSION, TEMP LOW, BLOOD PRESSURE READING UNDETECTABLE, SEEN PT MOVED HER LEFT ARM TOWARD HER CHEST, EYES HALF OPENED.
--- NOTE | 2018-07-04 11:50 | NUR ---
B.T. 2ND UNIT PACKED RBC HUNG, VITAL SIGNS MONITORED AND RECORDED, BLOOD PRESSURE THOUGH UNDETECTABLE, CARDIAC RATE IN THE 70'S.
--- NOTE | 2018-07-04 12:18 | NUR ---
DR. DEL ANGEL CALLED CRITICAL VALUE. SPOKE TO MARCY.
[2018-07-04 12:49] LABS: BAND % (MANUAL) 14 % (0-6); EOSINOPHILS % (MANUAL) 0 % (0-7); LYMPHOCYTES % (MANUAL) 11 % (20-46); MONOCYTES % (MANUAL) 1 % (0-11)
[2018-07-04 12:50] LABS: BASOPHILS % (MANUAL) 0 % (0-2); METAMYELOCYTES % 4 % (0-0)
--- NOTE | 2018-07-04 12:55 | NUR ---
B.T. TRANSFUSION DONE, CONTINUE TO MONITOR , CARDIAC RATE IN 70'S.
--- NOTE | 2018-07-04 13:05 | NUR ---
B.T. 3RD UNIT PACKED RBC HUNG, UNIT VERIFIED WITH ANOTHER AGAINST PT'S ID AND TRANSFUSION RECORD, VITAL SIGNS MONITORED BEFORE TRANSFUSION AND AFTER 15 MINUTES OF INFUSION.
--- NOTE | 2018-07-04 13:30 | NUR ---
B.T. TRANSFUSION COMPLETED, CARDIAC RATE NORMAL RANGES, BLOOD PRESSURE UNDETECTABLE.
--- NOTE | 2018-07-04 13:42 | NUR ---
B.T. 4th unit of packed red blood cells infused, vital signs monitored throughout infusion, blood pressure undetectable, pulse present confirmed with doppler, heart rate in the 60s. Addendum: 07/04/18 at 1734 by Naresh Medina RN DIDN'T CHANGE NOTE TIME, SHOULD BE 14:00, INFUSION TIME FROM 13:42 TO 14:00
[2018-07-04] MEDS ORDERED: HYDROCORTISONE SOD SUCC 100 MG/2 ML VIAL IVP SCH (14:00)
[2018-07-04] MEDS ORDERED: metroNIDAZOLE 500 mg/NS 100 ML IV SCH (14:00)
--- NOTE | 2018-07-04 14:38 | NUR ---
FFP INFUSION: 1st unit of fresh frozen plasma infused, time out performed with RN at bedside, vital signs monitored throughout infusion, blood pressure mostly undetectable, heart rate 55-65 bpm, no reaction noted. Addendum: 07/04/18 at 1733 by Nraesh Medina RN ENTERED WRONG NOTE TIME, SHOULD BE 15:30, INFUSION TIME WAS 14:38 TO 15:30
--- NOTE | 2018-07-04 15:00 | NUR ---
Call out to Dr. Azul to report ABG's. Message left with Regina on voice mail.
--- NOTE | 2018-07-04 15:20 | NUR ---
Called Dr. Velez office. Spoke to faisal who has just paged .
--- NOTE | 2018-07-04 15:29 | NUR ---
Left radial doppler radial pulse heard. BP unobtainable, HR [address] Barrera in to see pt.
--- NOTE | 2018-07-04 16:35 | NUR ---
FFP INFUSION: 2nd unit of fresh frozen plasma infused, time out performed with RN at bedside, vital signs monitored throughout infusion, blood pressure mostly undetectable, heart rate 56-74 bpm, no reaction noted, infusion time 15:44 to 16:35
--- NOTE | 2018-07-04 17:16 | NUR ---
. DR BOSTON HERE, WENT TO EXAMINE PT.
--- NOTE | 2018-07-04 17:52 | NUR ---
FFP INFUSION: 3rd unit of fresh frozen plasma infused, time out performed with RN at bedside, vital signs monitored throughout infusion, blood pressure mostly undetectable, heart rate 64-74 bpm, no reaction noted, infusion time 17:03 to 17:52
[2018-07-04] MEDS ORDERED: D5W 1,000 ML IV PRN (18:20)
[2018-07-04] MEDS ORDERED: DEXTROSE 50% JECT 50 ML DISP.SYRIN ONE (18:26)
[2018-07-04] MEDS ORDERED: DEXTROSE 50% JECT 50 ML DISP.SYRIN IVP PRN (18:30)
--- NOTE | 2018-07-04 19:17 | NUR ---
CLOSING NOTE: Plan of care endorsed to ALEKSANDRA Stephen. Patient remains obtunded, LT arm PICC line is patent, with infusion pump connected, dopamine and levophed drips running, see flow sheet. Bear hugger warming blanket is on. Mechanical vent is on with O2 sats in the 90s.
--- NOTE | 2018-07-04 19:30 | NUR ---
PM ASSESSMENT REPORT RECEIVED FROM [place]. PT RECEIVED IN BED WITH EYES CLOSED AND UNRESPONSIVE. UNABLE TO PALPATE RADIAL PULSES HOWEVER, WEAK FEMORAL PULSES PALPATED. SR ON MONITOR. PT INTUBATED, VENT SETTINGS: AC 30, TV 500, FIO2 100%, PEEP 5. OGT IN PLACE TO LOW INTERMITTENT SUCTION, DRAINING COFFEE GROUND FLUID. COLTON PICC IN PLACE INFUSING LEVOPHED DRIP @ 40 MCGS/MIN, DOPAMINE DRIP @ 30 MCG/MIN, AND 1/2 NS WITH 2 AMPS SODIUM BICARB @ 100 CC/HR. FRANK CATH IN PLACE DRAINING MINIMAL AMOUNT OF DARK TONY URINE TO GRAVITY. HOB ELEVATED, BED IN LOWEST POSITION, CALL LIGHT IN REACH. WILL CONTINUE TO MONITOR PT.
[2018-07-04] MEDS ORDERED: ATROPINE SULFATE 1 MG/10 ML SYRINGE IVP ONE (20:16)
[2018-07-04] MEDS ORDERED: EPINEPHrine JECT 1 MG/10 ML SYR ONE (20:16)
--- NOTE | 2018-07-04 20:16 | NUR ---
ANIYA CHANDLER WITNESSED RHYTHM CHANGE TO ASYSTOLE. PERIPHERAL PULSES NOT PALPABLE. ANIYA CHANDLER CALLED AT THIS TIME. DR. HUGGINS ANNOUNCED TIME OF @ 2130, NO PERIPHERAL PULSES PALPABLE, NO HEART SOUNDS AUSCULTATED FOR ONE MIN, NO BREATH SOUNDS AUSCULTATED, PUPILS FIXED AND DILATED. UNABLE TO OBTAIN VITAL SIGNS AND ASYSTOLE SHOWN ON MONITOR. SEE ANIYA CHANDLER SHEET FOR DETAILS.
--- NOTE | 2018-07-04 21:27 | NUR ---
[facility] CALLED AND MADE AWARE OF PT EXPIRATION AT THIS TIME.
--- NOTE | 2018-07-04 21:28 | NUR ---
MESSAGED ALL DR ABOUT PATIENTS EXPIRING @20:31
--- NOTE | 2018-07-04 21:39 | NUR ---
[facility] CALLED AND MADE AWARE OF PT EXPIRATION. PER [facility]ONERS OFFICE, NOT A DINKEY OPERATOR'S CASE. SPOKE WITH MERCEDES.
--- NOTE | 2018-07-04 21:49 | NUR ---
DR. LUDY DOTSON MADE AWARE OF PTS EXPIRATION. STATES HE WILL SIGN THE CERTIFICATE.
--- NOTE | 2018-07-04 23:00 | NUR ---
[facility] SPOKE WITH [facility] AGAIN AT THIS TIME, [facility] ASKING FOR FURTHER INFORMATION. PER [facility] REP DEANNA MEDINA IS ELIGIBLE FOR ORGAN DONATION. REFERENCE #: [id number].
--- NOTE | 2018-07-04 23:55 | NUR ---
BODY HOLD PT MOVED TO BODY HOLD AT THIS TIME. ALL BELONGINGS ACCOUNTED FOR AND GIVEN TO SECURITY FOR HOLDING.
--- NOTE | 2018-07-05 00:51 | NUR ---
[facility] CALLED AGAIN FOR FURTHER UPDATES. MADE [facility] AWARE THAT FAMILY IS NOT INVOLVED AND COULD NOT BE CONTACTED.
--- NOTE | 2018-07-06 16:19 | NUR ---
Panel Machine Tender-Late Entry for 07/05/18- INSULATION MACHINE OPERATOR spoke with pt's son Maximus Butterfield ([phone]) who stated that he did not want to assume any responsibility. Maximus stated that he would try to get in contact with pt's other son and provide them with INSULATION MACHINE OPERATOR contact information. INSULATION MACHINE OPERATOR spoke with Enzo Frazier [facility] who does not have any room for pt at this time. Enzo Frazier has agreed to assist with paperwork for pt to be taken to [facility] if pt remains unclaimed. INSULATION MACHINE OPERATOR received call from Stephanie Dowling stating that her Sage is pt's son and they will discuss assuming responsibility for pt. Stephanie states that she will return call on 07/06/18.
--- NOTE | 2018-07-06 16:22 | NUR ---
Social Service Note: FINANCIAL AID ADVISOR received call from Stephanie Dowling who states that she and her , Sage (pt's son) will assume responsibility and make mortuary arrangements. Stephanie states that they have decided to work with [facility] ([phone]). Stephanie and Sage (pt's son) are working on completing paperwork via emails with [facility]. Once paperwork is complete [facility] will contact hospital to arrange pear picker.
== END 2018-07-04 20:31 | disposition expired | DRG 871 ==
LOC: SED 20:17 → SIC 22:26
PROVIDERS: ADMIT Family Medicine; ATTEND Family Medicine
PROC: 02HV33Z Insertion of Infusion Device into Superior Vena Cava, Percutaneous Approach (ICD-10-PCS; 2018-07-02)
PROC: B548ZZA Ultrasonography of Superior Vena Cava, Guidance (ICD-10-PCS; 2018-07-02)
PROC: 30233L1 Transfusion of Nonautologous Fresh Plasma into Peripheral Vein, Percutaneous Approach (ICD-10-PCS; principal; 2018-07-04)
PROC: 30233N1 Transfusion of Nonautologous Red Blood Cells into Peripheral Vein, Percutaneous Approach (ICD-10-PCS; 2018-07-04)
PROC: 30233R1 Transfusion of Nonautologous Platelets into Peripheral Vein, Percutaneous Approach (ICD-10-PCS; 2018-07-04)
PROC: 30233K1 Transfusion of Nonautologous Frozen Plasma into Peripheral Vein, Percutaneous Approach (ICD-10-PCS; 2018-07-04)
PROC: 5A1935Z Respiratory Ventilation, Less than 24 Consecutive Hours (ICD-10-PCS; 2018-07-04)
PROC: 0BH17EZ Insertion of Endotracheal Airway into Trachea, Via Natural or Artificial Opening (ICD-10-PCS; 2018-07-04)
PROC: 5A12012 Performance of Cardiac Output, Single, Manual (ICD-10-PCS; 2018-07-04)
DX: A41.9 Sepsis, unspecified organism (principal); E43 Unspecified severe protein-calorie malnutrition; G93.41 Metabolic encephalopathy; J96.00 Acute respiratory failure, unspecified whether with hypoxia or hypercapnia; R65.21 Severe sepsis with septic shock; E87.1 Hypo-osmolality and hyponatremia; C78.7 Secondary malignant neoplasm of liver and intrahepatic bile duct; N17.9 Acute kidney failure, unspecified; E87.0 Hyperosmolality and hypernatremia; E87.2 Acidosis; N39.0 Urinary tract infection, site not specified; S36.32XA Contusion of stomach, initial encounter; D64.9 Anemia, unspecified; E87.5 Hyperkalemia; E86.0 Dehydration; D63.8 Anemia in other chronic diseases classified elsewhere; E86.1 Hypovolemia; D69.6 Thrombocytopenia, unspecified; E87.6 Hypokalemia; I46.9 Cardiac arrest, cause unspecified; M19.90 Unspecified osteoarthritis, unspecified site; F20.9 Schizophrenia, unspecified; X58.XXXA Exposure to other specified factors, initial encounter; Z74.01 Bed confinement status; Z85.3 Personal history of malignant neoplasm of breast; Z90.11 Acquired absence of right breast and nipple; Z92.21 Personal history of antineoplastic chemotherapy; Z68.33 Body mass index [BMI] 33.0-33.9, adult; Z88.0 Allergy status to penicillin; Z91.041 Radiographic dye allergy status; Z91.013 Allergy to seafood; Y93.89 Activity, other specified; Y92.89 Other specified places as the place of occurrence of the external cause; Y99.8 Other external cause status; Z85.118 Personal history of other malignant neoplasm of bronchus and lung; Z85.05 Personal history of malignant neoplasm of liver; Z85.830 Personal history of malignant neoplasm of bone
CPT/HCPCS: 36415; 36600; 70450-TC; 71045; 76700-TC; 80048; 80053; 81000-TC; 82140-TC; 82607; 82728; 82746; 82803-TC; 82962; 83540-TC; 83550-TC; 83605; 83690-TC; 83735-TC; 83880; 84100-TC; 84478-TC; 85007; 85027; 85379; 85384-TC; 85610-TC; 85730-TC; 86300; 86886; 86900; 86901; 86920; 87040-TC; 87070-TC; 87081; 87086; 87186-TC; 87205-TC; 92950; 93005; 93970; 94002; 94640; 96361; 96374; 96375; 99285; C1751; J0171; J0461; J1200; J1265; J1644; J1720; J1815; J1956; J2405; J2765; J3475; J3480; J3490; J7030; J7040; J7050; J7060; J7131; P9021; P9034; P9046; P9059